=== PATIENT | female | born 1990 | race Caucasian/White ===

== ENCOUNTER → 2021-01-18 | Outpatient (CLI) | payer BC ==
[~2021-01-18] MED LIST: MOTRIN 600600 MG/TAB PO
== END ==
LOC: ZCOL.LAB
DX: Z20.822 Contact with and (suspected) exposure to COVID-19 (principal)

== ENCOUNTER 2021-01-22 07:59 | Inpatient (IN) | payer BC ==
[2021-01-22] VITALS (11 sets, daily range): BP systolic 111–126; BP diastolic 59–87; PULSE 87–107
[~2021-01-22] VITALS: Ht 165.1 cm; Wt 98.2 kg
--- NOTE | 2021-01-22 19:10 | NUR ---
Ambulatory to unit for cytotech induction, accompanied by spouse. Oriented to room, monitor, plan of care. Questions invited and answered.
[2021-01-22 21:04] LABS: BASO % 0.3 % (0.0-2.0); EOS # 0.1 (0.0-0.7); EOS % 0.6 % (0-4.0); GRAN # 7.2 (1.4-6.5); GRAN % 71.2 % (42.2-75.2); HEMOGLOBIN 12.4 g/dl (12.5-16.0); MEAN CELL VOLUME 88 fl (80.0-100.0); MEAN CORPUSCULAR HEMOGLOBIN 30 pg (27.0-31.0); MEAN CORPUSCULAR HGB CONC 34 g/dl (33.0-37.0); MEAN PLATELET VOLUME 12.6 fl (7.4-10.4); MONO # 0.8 (0.1-0.6); MONO % 7.5 % (1.7-9.3); PLATELET COUNT 211 K/mm3 (130-400); RED BLOOD COUNT 4.19 M/mm3 (4.10-5.30); REDCELL DISTRIBUTION WIDTH-CV 13.7 % (11.5-14.5)
[2021-01-22 21:07] LABS: HEMATOCRIT 36.7 % (37.0-47.0)
[2021-01-23] VITALS (57 sets, daily range): BP systolic 99–189; BP diastolic 37–103; PULSE 68–120; TEMP 97.4–98.8
--- NOTE | 2021-01-23 00:10 | NUR ---
FHT's to 80's-90's. Maternal HR 92. To WL with return of FHT's to 150's then 160's
--- NOTE | 2021-01-23 00:58 | NUR ---
FHT's baseline 160's decels to 140's after 40 second mild contraction, returns to basleine 160's in 30 seconds. 0105 FHT's 106's-170's. uterine irritability with 30-50 second mild contractions every 1.5 4 minutes. LR started for bolus. Pt turned to R side.
--- NOTE | 2021-01-23 02:15 | NUR ---
TOCO tracing irritability, 20-30 second contractions with 6o second contractions every 4 min.
--- NOTE | 2021-01-23 04:10 | NUR ---
pt reports "my water broke" SVE reveals large amount clear fluid.
--- NOTE | 2021-01-23 04:30 | NUR ---
Pt tense, crying states "this is horrible" Discuss epidural, pt agrees.
--- NOTE | 2021-01-23 04:54 | NUR ---
Anesthesia notified of request for epidural.
--- NOTE | 2021-01-23 04:57 | NUR ---
Pt moving around on bed, unable to get comfortable, crying, unable to relax. Moved to stand @ bedside.
--- NOTE | 2021-01-23 05:35 | NUR ---
onto bed for epidural placement. EFM tracing maternal heart rate.
--- NOTE | 2021-01-23 05:40 | NUR ---
Aleksandar [employer] into room for epidural placement.See anesthesia record.
--- NOTE | 2021-01-23 06:05 | NUR ---
FHT's baseline 145-150, decels with ctx to 130, returns to baseline by end of ctx. To roe R. Pt reports starting to "feel better"di
--- NOTE | 2021-01-23 06:20 | NUR ---
Care of pt assumed for Gabriel Renteria RN at this time.
--- NOTE | 2021-01-23 08:23 | NUR ---
0823- ROLES ON UNIT. REVIEWS FHR AND UTERINE ACTIVITY. NO ORDERS FOR PITOCIN AT THIS TIME.
--- NOTE | 2021-01-23 11:35 | NUR ---
Roles on unit. Reviews FHR strip and ctx pattern, Updated on SVE AL. Plan to recheck SVE at 1145. 1140-SVE per this RN C/0. Roles notified. Orders to begin pushing. Pt coached on pushing efforts. Begins pushing with this RN. Moves vertex well.
--- NOTE | 2021-01-23 13:13 | NUR ---
Roles at bedside. Pushes with patient. Reviews FHR strip. Orders to continue pushing efforts.
--- NOTE | 2021-01-23 15:03 | NUR ---
Dr. Kessler at bedside for delivery. 1517- of viable female attended by Dr. Kessler. Cord clamped x 2 and cut from umbilicus. dried and placed on maternal abdomen. Care of to Edward Badillo RN. Apgars 5/9. 1522- of placenta. Pitocin bolus infusing per protocol. Fundus firm at umbilicus. Lochia WNL. Red robbin performed by provider. 100cc noted of clear, yellow urine. Second degree laceration per Dr. Kessler. Pericare performed. Ice pack applied. Pt updated on POC. Bed locked in low position. Call light within reach. No questions or concerns at this time.
[2021-01-24] VITALS: BP 124/79; PULSE 105; TEMP 98.1
[2021-01-24 04:15] VITALS: BP 113/70; PULSE 107; TEMP 97.9
--- NOTE | 2021-01-24 07:02 | NUR ---
PATIENT SLEEPING, REPROT RECEIVED FROM OFF GOING [facility] CARE TAKEN OVER BY THIS RN.
[2021-01-24 07:19] VITALS: BP 121/87; PULSE 88; TEMP 97.7
--- NOTE | 2021-01-24 09:10 | NUR ---
Initial visit; Parents thanked [employer] for offering congratulations and God's blessings for the of their daughter. Ring Maker thanked family for choosing [facility].
[2021-01-24] MEDS ORDERED: MOTRIN 600600 MG/TAB PO (10:51)
[2021-01-24 16:52] VITALS: BP 126/79; PULSE 97; TEMP 97.7
--- NOTE | 2021-01-24 21:03 | NUR ---
PT IS PREPARED TO BE DISCHARGED AND DISCHARGE INSTRUCTIONS ARE REVIEWED UNDERSTANDEDING VOICED
== END 2021-01-24 21:10 | disposition home or self-care (01) | DRG 807 ==
LOC: LDR 18:56 → OB 01-23 20:19
PROVIDERS: ADMIT Obstetrics & Gynecology
PROC: 10E0XZZ Delivery of Products of Conception, External Approach (ICD-10-PCS; principal; 2021-01-22)
PROC: 0KQM0ZZ Repair Perineum Muscle, Open Approach (ICD-10-PCS; 2021-01-22)
PROC: 3E033VJ Introduction of Other Hormone into Peripheral Vein, Percutaneous Approach (ICD-10-PCS; 2021-01-22)
DX: O48.0 Post-term pregnancy (principal); Z37.0 Single live birth; Z3A.41 41 weeks gestation of pregnancy; O70.1 Second degree perineal laceration during delivery
CPT/HCPCS: J2405; J2590; J7120

== ENCOUNTER → 2021-02-08 | Outpatient (CLI) | payer BC ==
--- NOTE | 2021-02-08 15:47 | NUR ---
Pt, Tammy Kay, presents for outpatient consult with 16 day old baby girl, Isa Kay for an evaluation of lip tie and . She is accompanied by her spouse, Elfego. Isa was born on [birth year] and weighed 7#13.9oz (3570 gms). Discharge weight was 7#13oz. Pt states Isa was seen by Dr. Hollis on 01/28/21 adn weighed 7#9oz. Today Isa weighs 9#3.1oz (4170 gms). Pt states Isa was pretty fussy last noc, that she eats 10-12 times per 24 hours, and is gassy a lot. Pt latches Isa to the left breast, LC advises on better alignment and keeping the areola deeper in Isa's mouth. After nursing left side, Isa has a gain of 62 gms. She appears content and does not search for more food. LC discusses one sided feedings to help reduce potential for lactose overload and therefore reducing gassiness. Isa does have a thick upper lip frenulum that likely does not affect her , but if they desire further evaluation they were welcome to do so. POC: Continue ad ge, try one side feeding for a short time to reduce oversupply of milk and potentially reduce gassiness. F/U: As desired with [facility] for upper lip frenulum, with Dr. Hollis as scheduled. Questions invited and answered.
== END ==
LOC: LAC 14:15
DX: Z39.1 Encounter for care and examination of lactating mother (principal); Z71.89 Other specified counseling